=== PATIENT | male | born 1955 | race African-American/Black ===

== ENCOUNTER 2016-12-05 08:31 | Emergency (ER) | payer OTHER ==
[~2016-12-05] VITALS: Ht 177.8 cm; Wt 90.7 kg
[~2016-12-05 08:31] MED LIST: ANUSOL-HC CREAM30 GM RECTAL; IBUPROFEN600 MG ORAL; NKM; NORCO 5-325 TA1 EACH ORAL; NORCO1 E1 ORAL
[2016-12-05 09:00] VITALS: BP 161/101
--- NOTE | 2016-12-05 09:47 | Emergency Room Report ---
History of Present Illness General Chief Complaint: Gastrointestinal Bleed Source: Patient Present Illness HPI Is a 61-year-old male who presented after having increased rectal bleeding. The patient prior history of diverticular disease. Patient had prior colostomy and takedown approximately one year ago. He had not been having any abdominal pain. He had not been vomiting. Patient was noted to have normal color stool with some some bright red blood external to the area of bleeding. He had not been having any fever. He denied feeling dizzy or lightheaded. Allergies: Coded Allergies: No Known Allergies (Unverified , 09/24/13) Patient History Past Medical History: see triage record Reviewed Nursing Documentation: PMH: Agreed, PSxH: Agreed Nursing Documentation-PMH Hx Cardiac Problems: No Hx Hypertension: Yes Hx Cancer: No Hx Gastrointestinal Problems: Yes - ANEMIA, COLOSTOMY, SICKLE CELL Hx Neurological Problems: No Review of Systems All Other Systems: negative except mentioned in HPI Physical Exam Vital Signs Date Time Temp Pulse Resp B/P Pulse Ox O2 Delivery O2 Flow Rate FiO2 12/05/16 08:45 97.7 74 20 176/105 98 Room Air Sp02 EP Interpretation: reviewed, normal General Appearance: normal inspection, well appearing, no apparent distress, alert, GCS 15 Head: atraumatic ENT: normal ENT inspection, hearing grossly normal, normal voice Neck: normal inspection, full range of motion, supple, no bony tend Respiratory: normal inspection, lungs clear, normal breath sounds, no respiratory distress, no retraction, no wheezing Cardiovascular #1: regular rate, rhythm, no edema Gastrointestinal: normal inspection, normal bowel sounds, non tender, soft, no guarding, no hernia Rectal: normal rectal tone, hemorrhoids, other - heme + brown stool Genitourinary: no CVA tenderness Musculoskeletal: normal inspection, back normal, normal range of motion Neurologic: normal inspection, alert, oriented x3, responsive, speech normal Psychiatric: normal inspection, judgement/insight normal, mood/affect normal Skin: normal inspection, no rash, other - depigmentation to right side of abdomen. Medical Decision Making Diagnostic Impression: Primary Impression: Rectal bleeding Additional Impression: Diverticulosis ER Course Patient presented for rectal bleeding. Differential diagnosis included was not limited to arteriovenous malformation, colitis, coagulopathy, anemia, and others.Because of complexity of patient's case laboratory testing and imaging studies were ordered. The patient noted be mildly hypertensive. Patient was noted to have a benign abdominal exam. Laboratory studies were unremarkable.The patient does not appear to have bleeding require inpatient management. Patient is advised to have outpatient evaluation with Micheale patient is advised to follow up with his resaw feeder. Patient is advised to return if any worsening condition or if any changes in status that are concerning. Last Vital Signs Date Time Temp Pulse Resp B/P Pulse Ox O2 Delivery O2 Flow Rate FiO2 12/05/16 08:45 97.7 74 20 176/105 98 Room Air Status: improved Disposition: HOME, SELF-CARE Condition: Stable Scripts Omeprazole (OMEPRAZOLE) 20 Mg Tablet.dr 20 MG ORAL DAILY, #30 TAB Prov: Carlos Proctor 12/05/16 Docusate Sodium* (COLACE*) 100 Mg Capsule 100 MG ORAL TWICE A DAY, #60 CAP Prov: Carlos Proctor 12/05/16 Referrals: NON PHYSICIAN (PCP) Carlos Proctor Dec 05, 2016 09:47
[2016-12-05 09:48] LABS: BASOPHILS % (AUTO) 1.3 % (0.0-2.0); EOSINOPHILS % (AUTO) 1.3 % (0.0-3.0); LYMPHOCYTES % (AUTO) 34.5 % (20.0-45.0); MEAN CORPUSCULAR HGB CONC 34.8 G/DL (32.0-36.0); MEAN CORPUSCULAR VOLUME 92 FL (80-99); MEAN PLATELET VOLUME 7.2 FL (6.5-10.1); MONOCYTES % (AUTO) 8.8 % (1.0-10.0); NEUTROPHILS % (AUTO) 54.2 % (45.0-75.0); PLATELET COUNT 175 K/UL (150-450); RED BLOOD COUNT 4.26 M/UL (4.70-6.10); RED CELL DISTRIBUTION WIDTH 12.1 % (11.6-14.8); WHITE BLOOD COUNT 5.3 K/UL (4.8-10.8)
[2016-12-05 09:53] LABS: INR 1.1 (0.9-1.1)
[2016-12-05 09:59] LABS: ALANINE AMINOTRANSFERASE 21 U/L (3-41); ALBUMIN/GLOBULIN RATIO 1.6 (1.0-2.7); ANION GAP 16 (5-15); ASPARTATE AMINO TRANSFERASE 26 U/L (5-40); CALCIUM 9.1 mg/dL (8.6-10.2); CARBON DIOXIDE 23 mEQ/L (20-30); CHLORIDE 99 mEQ/L (98-107); CREATININE 1.1 mg/dL (0.7-1.2); GLOMERULAR FILTRATION RATE > 60 mL/min (>60); HEMOLYSIS 35; SODIUM 138 mEQ/L (135-145)
[2016-12-05] MEDS ORDERED: OMEPRAZOLE20 M3 ORAL (10:46)
[2016-12-05] MEDS ORDERED: COLACE100 MG ORAL (10:46)
[2016-12-05 11:05] VITALS: BP 173/107
== END 2016-12-05 10:57 | disposition home or self-care (01) ==
LOC: EMR 08:52
DX: K62.5 Hemorrhage of anus and rectum (principal); K64.9 Unspecified hemorrhoids; K57.30 Diverticulosis of large intestine without perforation or abscess without bleeding; R19.5 Other fecal abnormalities; I10 Essential (primary) hypertension; Z93.3 Colostomy status; D57.1 Sickle-cell disease without crisis
CPT/HCPCS: 36415; 80053; 85025; 85610; 85730; 99284